=== PATIENT | male | born 1990 | race African-American/Black ===

== ENCOUNTER 2020-02-22 12:25 | Emergency (ER) | payer MEDICAID ==
[~2020-02-22] VITALS: Ht 175.3 cm; Wt 62.0 kg
[2020-02-22 12:28] VITALS: BP 131/71
[2020-02-22] MEDS ORDERED: LIDOCAINE HCL/PF 1% 10 MG/ML 5ML VIAL IJ ONE (13:00)
[2020-02-22] MEDS ORDERED: BACITRACIN ZINC OINT UDPKT TOP ONE (13:00)
[2020-02-22] MEDS ORDERED: TETANUS, DIPHTHERIA, PERTUSSIS VAC/PF 0.5ML (>7YR OLD) IM ONE (13:00)
[2020-02-22] MEDS ORDERED: HYDROCODONE/ACETAMINOPHEN 5/325MG TABLET PO ONE (13:45)
== END 2020-02-22 17:12 | disposition home or self-care (01) ==
LOC: EDBD 12:25 → ER 12:25
DX: S62.632A Displaced fracture of distal phalanx of right middle finger, initial encounter for closed fracture (principal); S62.638A Displaced fracture of distal phalanx of other finger, initial encounter for closed fracture; Z88.1 Allergy status to other antibiotic agents; W18.30XA Fall on same level, unspecified, initial encounter; Y93.89 Activity, other specified; Y92.89 Other specified places as the place of occurrence of the external cause; Y99.8 Other external cause status
CPT/HCPCS: 12001; 73140; 99283; J3490

== ENCOUNTER 2020-02-25 14:26 | Emergency (ER) | payer MEDICAID ==
[~2020-02-25] VITALS: Ht 175.3 cm; Wt 70.0 kg
[2020-02-25 14:28] VITALS: BP 123/82
== END 2020-02-25 17:10 | disposition home or self-care (01) ==
LOC: ER 14:26
DX: Z48.00 Encounter for change or removal of nonsurgical wound dressing (principal)
CPT/HCPCS: 99281

== ENCOUNTER 2020-03-01 15:54 | Emergency (ER) | payer MEDICAID ==
[~2020-03-01] VITALS: Ht 175.3 cm; Wt 72.0 kg
[2020-03-01 16:56] VITALS: BP 129/82
== END 2020-03-01 16:57 | disposition home or self-care (01) ==
LOC: ER 16:06
DX: Z48.00 Encounter for change or removal of nonsurgical wound dressing (principal)
CPT/HCPCS: 99281